=== PATIENT | female | born 1980 | race Two or more races ===

== ENCOUNTER 2016-10-13 21:28 | Inpatient (IN) | payer OTHER ==
[~2016-10-13] VITALS: Ht 386.1 cm; Wt 67.6 kg
--- NOTE | ~2016-10-13 | US6 ---
[facility] A Service of [facility] & [facility] RADIOLOGY TEXT RESULTS PATIENT: ROBERTO HARRIS LOCATION: C2A 232-01 : [birth year] UNIT #: [id number] AGE: [address]: Jose M Velasco MD SEX: F ORDER DR: [id number] [facility] [address] [place], [place] [address] [id number] I MR#: [id number] #: [id number] NAME: ROBERTO HARRIS : 1980 SEX: F STUDY DATE/TIME: 10/14/2016 8:08 UNIT: C2 ROOM: [facility] STUDY DESCRIPTION: US Abdominal Limited Attending Physician: Jose M Velasco M.D. Ordering Physician: Nilay Luna III, M.D. Primary Care Physician: No Primary Care Physician MEDICAL IMAGING REPORT This report is preliminary unless electronic signature is present EXAM Right upper quadrant ultrasound, 10/14/2016. HISTORY Right upper quadrant abdominal pain for 2 days, worsening last night with nausea and vomiting. FINDINGS The liver demonstrates homogeneous echotexture with no cystic or solid mass lesions identified. The intrahepatic bile ducts are not dilated. The gallbladder contains multiple shadowing gallstones. There is no evidence of gallbladder wall thickening or pericholecystic fluid. The common duct is dilated to 7 mm. No obstructing mass or calculus is seen but the distal aspect of the common duct is obscured by bowel gas. If there is clinical concern for cholelithiasis, consider correlation with MRCP. The pancreas and right kidney are normal. IMPRESSION Cholelithiasis. No evidence of gallbladder wall thickening or pericholecystic fluid. There is dilatation of the common bile duct to 7 mm but no obstructing mass or calculus is seen. Note is made, however, that the distal aspect of the common bile duct is obscured by bowel gas. If there is clinical concern for choledocholithiasis. Recommend correlation with MRCP. Dictated by... David Rojo M.D. THIS IS AN ELECTRONICALLY VERIFIED REPORT David Rojo M.D. at 10/17/2016 7:32 AM KRT/tmw [facility]. [facility] A Service of [facility] & [facility] RADIOLOGY TEXT RESULTS PATIENT: ROBERTO HARRIS LOCATION: [facility] 232-01 : [birth year] UNIT #: [id number] AGE: [address]: Jose M Velasco MD SEX: F ORDER DR: TD: 10/14/2016 17:06 JOB #: [id number] MEDICAL IMAGING REPORT Page 1 of 1 COPY
--- NOTE | ~2016-10-13 | OR ---
Unit #: [id number] #: [id number] Patient: ROBERTO HARRIS [id number] [address] [address] [id number] I MR#: [id number] NAME: ROBERTO HARRIS ROOM: 232 Date of Procedure: 10/14/2016 Admission Date: 10/14/2016 Surgeon: Amrik Rodriguez Jr., M.D. : 1980 Attending Physician: Jose M Velasco M.D. OPERATIVE REPORT INDICATIONS FOR PROCEDURE The patient is a 36-year-old female, who presented through the emergency room complaining of mid epigastric abdominal pain. Workup revealed evidence of probably acute cholecystitis with cholelithiasis. She is brought to the operating room at this time for laparoscopic cholecystectomy. She understands the procedure including the risks, including that of bleeding, intra-abdominal organ injury, biliary leak, and common duct injury, and consents. PREOPERATIVE DIAGNOSIS Acute cholecystitis. POSTOPERATIVE DIAGNOSIS Acute cholecystitis noting large stones as well as some polycystic ovaries. ANESTHESIA General with endotracheal intubation. PROCEDURE PERFORMED Laparoscopic cholecystectomy. DESCRIPTION OF PROCEDURE The patient was positioned in supine position. After being anesthetized and intubated, she was prepped and draped in routine fashion for laparoscopic cholecystectomy. A small supraumbilical incision was made approximately a 1 cm in length. This was carried down to the fascia. Fascia lifted with a towel clip, and a Veress needle introduced into the abdomen. The abdomen was then inflated with CO2 gas. A 5-mm port was introduced into the abdomen followed by the camera. No evidence of any injury related to introduction of the port of the Veress needle. Brief intra-abdominal exploration was carried out. The patient noted to have acutely inflamed gallbladder as well as polycystic ovaries. She was also noted to have an incidental finding of a small right inguinal hernia. At this point, two 5-mm ports were placed laterally, 11 mm port just to right of the upper midline. The gallbladder was lifted. Dissection was carried out in the triangle of Calot, cystic duct was identified, hemoclipped x4, and divided. This was approximately a 1 cm from its junction with the common duct. Cystic artery was identified, hemoclipped x3, and divided. The gallbladder was then removed from its bed with the hook cautery using a current of 20 and after it was released, it was placed in EndoCatch bag and brought out through the larger port site. The port was replaced. Unit #: [id number] #: [id number] Patient: ROBERTO HARRIS Subhepatic space checked. There was no evidence of any bleeding from the gallbladder bed. The clips on cystic duct and cystic artery were intact with no evidence of any leak or bleeding. CO2 was expressed from the abdomen. The fascia in the larger port site closed with the neoClose technique. The ports were checked after the ports removed and there was no evidence of any bleeding from the port sites. The port sites were injected with 0.5% Marcaine with epinephrine and after irrigating the port sites and using the Bovie cautery for any bleeding. The skin edges were approximated with stainless-steel skin clips and skin stapling device. Sterile dressings were applied externally. Estimated blood loss less than 50 mL. The patient received less than 1500 mL crystalloid solution during the procedure. Sponges and instrument counts were correct x3. No drains were used. No complications. The patient was taken to the recovery room with stable vital signs in satisfactory condition. Dictated by... Amrik Rodriguez Jr., MAjith GARCIA/neris TD: 10/21/2016 20:18 JOB #: [id number] OPERATIVE REPORT Page 1 of 1 X Amrik Rodriguez MD X PROCEDURE OPERATIVE NOTE
--- NOTE | ~2016-10-13 | CT2 ---
[facility] A Service of [facility] & [facility] RADIOLOGY TEXT RESULTS PATIENT: ROBERTO HARRIS LOCATION: [facility] 232-01 : [birth year] UNIT #: [id number] AGE: [address]: Jose M Velasco MD SEX: F ORDER DR: [id number] [place] [address] [facility]. [place], [place] [address] [id number] I MR#: [id number] Acc #: [id number] NAME: ROBERTO HARRIS : 1980 SEX: F STUDY DATE/TIME: 10/14/2016 3:27 UNIT: CEDOF ROOM: [id number] STUDY DESCRIPTION: CT Abd and Pelv W Cont Attending Physician: Jose M Velasco M.D. Ordering Physician: Woody Garza D.O. Primary Care Physician: No Primary Care Physician MEDICAL IMAGING REPORT This report is preliminary unless electronic signature is present EXAM CT abdomen and pelvis with contrast, 10/14/2016. HISTORY 36-year-old female in the ED complaining of a 3-day history of generalized abdomen pain. She notes a past history of gastritis and peptic ulcer disease. TECHNIQUE CT examination of the abdomen and pelvis with IV contrast. GI contrast material was not ordered, limiting evaluation of the GI tract. This CT exam was performed with one or more of the following radiation dose reduction techniques: automatic exposure control, adjustment of mA and/or kV according to patient size, and iterative reconstruction. FINDINGS ABDOMEN FINDINGS: The gallbladder wall is thickened, and there is prominent contrast enhancement of the gallbladder mucosa. Dense material within the gallbladder likely representing multiple gallstones. The gallbladder is nondistended. There is no intrahepatic or extrahepatic bile duct dilatation. Pancreas is negative with no evidence of acute pancreatitis. Liver, spleen, and kidneys are normal in size and appearance. Small bowel and colon are normal in caliber and appearance. The appendix is surgically absent by history. PELVIS FINDINGS: Uterus, ovaries, urinary bladder, and rectum are within normal limits. No inguinal hernia or significant abdominal wall hernia. Limited lung base images show no active disease in the lower chest. [facility] A Service of [facility] & [facility] RADIOLOGY TEXT RESULTS PATIENT: ROBERTO HARRIS LOCATION: [place] [address] : [birth year] UNIT #: [id number] AGE: [address]: Jose M Velasco MD SEX: F ORDER DR: IMPRESSION 1. Probable stone material within a nondistended gallbladder. There is diffuse gallbladder wall thickening with prominent gallbladder mucosal enhancement. Correlate clinically for additional evidence of potential acute cholecystitis. No intrahepatic or extrahepatic bile duct dilatation. No evidence of pancreatitis. 2. The remainder of the examination is negative. Surgically absent appendix. Dictated by... José Miguel Ramirez M.D. THIS IS AN ELECTRONICALLY VERIFIED REPORT José Miguel Ramirez M.D. at 10/17/2016 11:07 PM YESSY/palmira TD: 10/14/2016 14:10 JOB #: [id number] MEDICAL IMAGING REPORT Page 1 of 1 COPY
--- NOTE | ~2016-10-13 | HP ---
Unit #: [id number] #: [id number] Patient: ROBEROT HARRIS [id number] [address] [address] [id number] I MR#: [id number] NAME: ROBERTO HARRIS ROOM: 73721 Age: 36 Sex: F Admission Date: 10/14/2016 : 1980 Attending Physician: Jose M Velasco M.D. Primary Care Physician: No Primary Care Physician HISTORY AND PHYSICAL REVISED REPORT CHIEF COMPLAINT Abdominal pain. HISTORY OF PRESENT ILLNESS This is a 36-year-old lady who has a three day history of epigastric pain with nausea and vomiting. The pain became more intense last night. She presented to the ER. She has a history of stomach ulcers but this patient is different than that. PAST SURGICAL HISTORY Significant for: 1. An open appendectomy over ten years ago. 2. . MEDICATIONS Include: 1. Omeprazole. 2. Morphine. 3. Reglan. ALLERGIES She has no known drug allergies. SOCIAL HISTORY She denies any tobacco or alcohol use. FAMILY HISTORY Negative for cancer. REVIEW OF SYSTEMS Negative for fevers or weight loss and is otherwise as above. PHYSICAL EXAMINATION VITAL SIGNS: Temperature is 97.3, heart rate is 84, respiratory rate 16, blood pressure is 113/65. She is in no acute distress. HEENT EXAM: Pupils are equal, reactive to light and accommodation. Extraocular muscles are intact. NECK: Without masses or bruits. LUNGS: Show good breath sounds bilaterally with equal air exchange. CARDIAC EXAM: Shows regular rate and rhythm without murmur. ABDOMEN: Soft, nondistended. She has some mild tenderness in the Unit #: [id number] #: [id number] Patient: ROBERTO HARRIS epigastric region. NEUROLOGIC EXAM: She is alert and oriented. There are no focal deficits. EXTREMITIES: Without edema or cyanosis. DIAGNOSTIC STUDIES LABORATORY: White blood count was elevated. LFTs are normal. IMAGING: CT scan shows what looked like a thickened gallbladder. OVERALL IMPRESSION This is a 36-year-old lady who likely has acute cholecystitis. I discussed proceeding with laparoscopic cholecystectomy including the risks and benefits through the parts interpreter phone. Based on the OR schedule, the surgery is going to have to be delayed either until tonight or in the morning. In the meantime, I will check a right upper quadrant ultrasound and start her on some dosing as well as morphine, Phenergan and Protonix. *Report faxed to Dr. Luna's office on 10/14/16 for medication verification. Dictated by Nilay Luna III, M.D. VCL/pollo TD: 10/14/2016 07:45 JOB #: [id number] HISTORY AND PHYSICAL Page 1 of 1 X Nilay Luna III, MD HISTORY AND PHYSICAL
[2016-10-14 01:02] LABS: BASOPHIL# 0.1 X10e3 (0-0.3); BASOPHIL% 0.6 % (0-2.5); EOSINOPHIL% 0.3 % (0.0-7.0); HEMATOCRIT 41.7 % (35.0-45.0); HEMOGLOBIN 13.7 gm/dL (12.0-16.0); LYMPHOCYTE% 14.8 % (17.0-45.0); MEAN CELL VOLUME 86.8 FL (83-96); MEAN CORPUSCULAR HEMOGLOBIN 28.5 PG (28-34); MEAN CORPUSCULAR HGB CONC 32.9 g/dL (30-36); MEAN PLATELET VOLUME 7.5 FL (6.5-11.5); MONOCYTE# 0.7 X10e3 (0-1.0); MONOCYTE% 5.5 % (3.0-12.0); NEUTROPHIL# 10.4 X10e3 (1.5-7.1); NEUTROPHIL% 78.8 % (40-75); PLATELET COUNT 332 X10e3 (140-420); RED BLOOD COUNT 4.81 X10e (3.90-5.30); WHITE BLOOD COUNT 13.2 X10e3 (4.0-10.5)
[2016-10-14 01:03] LABS: DIFF IND NO
[2016-10-14 01:38] LABS: ALBUMIN SERUM 4.4 g/dL (3.5-5.0); ALKALINE PHOSPHATASE 59 U/L (32-92); ALT (SGPT) 37 U/L (10-40); AMYLASE 31 U/L (0-46); AST (SGOT) 36 U/L (10-42); BILIRUBIN, DIRECT <0.1 mg/dL (0.0-0.2); BILIRUBIN,TOTAL <0.1 mg/dL (0.2-2.0); BLOOD UREA NITROGEN 13 mg/dL (9-23); BUN/CREATININE RATIO 21.66; CARBON DIOXIDE 25 mmol/L (22-31); CHLORIDE 102 mmol/L (100-111); CREATININE SERUM 0.6 mg/dL (0.6-1.4); GLOM FILT RATE Estimated 118.9 mL/min (>60); GLUCOSE FASTING 95 mg/dL (70-110); LIPASE 48 U/L (22-51); PROTEIN TOTAL SERUM 7.6 g/dL (6.0-8.3); SODIUM 134 mmol/L (135-145)
[2016-10-14 04:11] LABS: URINE SOURCE CLEAN CATCH
[2016-10-14 04:14] LABS: URINE APPEARANCE CLEAR; URINE BILIRUBIN NEG (NEG); URINE BLOOD NEG (NEG); URINE COLOR YELLOW; URINE GLUCOSE NEG (NEG); URINE KETONE NEG (NEG); URINE LEUKOCYTE ESTERASE NEG (NEG); URINE NITRATE NEG (NEG); URINE PROTEIN NEG (NEG); URINE SPECIFIC GRAVITY 1.035 (1.003-1.035); URINE UROBILINOGEN 0.2 MG/DL (NEG)
[2016-10-14 04:20] LABS: CULTURE INDICATED? NO
[2016-10-14 04:53] LABS: POC - CKMB <1.0 ng/mL (0.0-7.9); POC - TROPONIN <0.05 ng/mL (<=0.05)
[2016-10-14] MEDS ORDERED: OMEPRAZOLE20 M2 PO (05:44)
[2016-10-14] MEDS ORDERED: REGLAN5 MG PO (06:05)
[2016-10-15 05:23] LABS: HEMATOCRIT 39.3 % (35.0-45.0); HEMOGLOBIN 13.2 gm/dL (12.0-16.0); MEAN CELL VOLUME 86.4 FL (83-96); MEAN CORPUSCULAR HGB CONC 33.6 g/dL (30-36); MEAN PLATELET VOLUME 7.4 FL (6.5-11.5); RED BLOOD COUNT 4.55 X10e (3.90-5.30); RED CELL DISTRIBUTION WIDTH 13.2 % (11.0-15.5); WHITE BLOOD COUNT 8.1 X10e3 (4.0-10.5)
[2016-10-15 06:24] LABS: ALBUMIN SERUM 3.7 g/dL (3.5-5.0); BILIRUBIN,TOTAL 0.8 mg/dL (0.2-2.0); BUN/CREATININE RATIO 8.57; CALCIUM SERUM 8.8 mg/dL (8.4-10.2); CREATININE SERUM 0.7 mg/dL (0.6-1.4); POTASSIUM 4.2 mmol/L (3.5-5.1); PROTEIN TOTAL SERUM 6.4 g/dL (6.0-8.3)
[2016-10-15] MEDS ORDERED: NORCO 7.5-3251 EACH PO (08:03)
[2016-10-15] MEDS ORDERED: ZOFRAN PO (08:04)
== END 2016-10-15 10:06 | disposition home or self-care (01) | DRG 419 ==
LOC: CED 21:28 → CEDOF 10-14 06:09 → CED 10-14 06:24 → C2A 10-14 14:11
PROVIDERS: Emergency Medicine; Specialist; Surgery
PROC: 0FT44ZZ Resection of Gallbladder, Percutaneous Endoscopic Approach (ICD-10-PCS; principal; 2016-10-14 18:00)
DX: K80.00 Calculus of gallbladder with acute cholecystitis without obstruction (principal); E28.2 Polycystic ovarian syndrome; Z90.49 Acquired absence of other specified parts of digestive tract; K40.90 Unilateral inguinal hernia, without obstruction or gangrene, not specified as recurrent
CPT/HCPCS: 36415; 74177; 76705; 80048; 80053; 80076; 81003; 82150; 82553; 83690; 84484; 84703; 85025; 85027; 88304; 94010; 96361; 96365; 96375; 99285; J0330; J2250; J2270; J2405; J2543; J2710; J3010; Q9967